=== PATIENT | male | born 1930 | race Caucasian/White ===

== ENCOUNTER 2016-07-29 09:05 | Emergency (ER) | payer MEDICARE, OTHER ==
[2016-07-29 09:21] VITALS: BP 117/58
--- NOTE | 2016-07-29 10:21 | UC ---
Throat Pain/Nasal Long HPI - HPI Summary HPI Summary: FOUR DAYS OF SINUS CONGESTION PRESSURE, COUGH. FEELS LIKE PHLEGM CAUGHT AT BACK OF THROAT. NO FEVER. - History of Current Complaint Chief Complaint: UCRespiratory Stated Complaint: RESP COMPLAINT Time Seen by Provider: 07/29/16 10:00 Hx Obtained From: Patient Onset/Duration: Gradual Onset Severity: Moderate Cough: Productive Associated Signs & Symptoms: Positive: Sinus Discomfort, Nasal Discharge. Negative: Fever - Epiglottits Risk Factors Epiglottis Risk Factors: Negative - Allergies/Home Medications Allergies/Adverse Reactions: Allergies Allergy/AdvReac Type Severity Reaction Status Date / Time No Known Allergies Allergy Verified 01/17/15 11:00 Home Medications: Home Medications Indomethacin [Tivorbex] 20 mg PO 07/29/16 [History] PMH/Surg Hx/FS Hx/Imm Hx Previously Healthy: Yes - Surgical History Surgical History: Yes Surgery Procedure, Year, and Place: T&A as a child. Cardiac Cath 1994 - Social History Occupation: Retired Lives: With Family Alcohol Use: None Substance Use Type: None Smoking Status (MU): Former Smoker Type: Pipe Length of Time of Smoking/Using Tobacco: 20 years Have You Smoked in the Last Year: No When Did the Patient Quit Smoking/Using Tobacco: Quit 1984 Review of Systems Constitutional: Negative Skin: Negative Eyes: Negative ENT: Nasal Discharge Respiratory: Cough Cardiovascular: Negative Gastrointestinal: Negative Genitourinary: Negative Motor: Negative Neurovascular: Negative Musculoskeletal: Negative Neurological: Negative Psychological: Negative All Other Systems Reviewed And Are Negative: Yes Physical Exam Triage Information Reviewed: Yes Appearance: No Pain Distress, Well-Nourished, Ill-Appearing - MILDLY Vital Signs: Initial Vital Signs Temp 97.2 F 07/29/16 09:18 Pulse 62 07/29/16 09:18 Resp 18 07/29/16 09:18 BP 117/58 07/29/16 09:18 Pulse Ox 96 07/29/16 09:18 Vital Signs Reviewed: Yes Eye Exam: Normal ENT: Positive: Hearing grossly normal, Pharynx normal, Nasal congestion, TM bulging, TM dull Dental Exam: Normal Neck exam: Normal Neck: Positive: Supple, Nontender, No Lymphadenopathy Respiratory Exam: Other - COUGH Respiratory: Positive: Chest non-tender, Lungs clear, Normal breath sounds, No respiratory distress, No accessory muscle use Cardiovascular Exam: Normal Cardiovascular: Positive: RRR, No Murmur, Pulses Normal Abdominal Exam: Normal Musculoskeletal Exam: Normal Musculoskeletal: Positive: Strength Intact Neurological Exam: Normal Psychological Exam: Normal Skin Exam: Normal Throat Pain/Nasal Course/Dx - Differential Dx/Diagnosis Differential Diagnosis/HQI/PQRI: Sinusitis, URI Provider Diagnoses: SINUSITIS; UPPER RESPIRATORY INFECTION Discharge - Discharge Plan Condition: Stable Disposition: HOME Prescriptions: Azithromycin TAB* [Zithromax TAB (Z-CASEY) 250 mg #6 tabs] 250 mg PO DAILY #6 tab Benzonatate CAP* [Tessalon 100 MG CAP*] 100 mg PO TID PRN #15 cap PRN Reason: Cough Patient Education Materials: Sinusitis (ED), Upper Respiratory Infection (ED) Referrals: Elton Jerez MD [Primary Care Provider] -
== END 2016-07-29 10:21 | disposition home or self-care (01) ==
LOC: UCEAST 09:05
DX: J32.9 Chronic sinusitis, unspecified (principal); J06.9 Acute upper respiratory infection, unspecified; Z87.891 Personal history of nicotine dependence
CPT/HCPCS: 99202; G0463

== ENCOUNTER 2016-09-20 08:48 | Emergency (ER) | payer MEDICARE, OTHER ==
--- NOTE | 2016-09-20 09:26 | UC ---
Truncal Trauma HPI - HPI Summary HPI Summary: 86 Y/O male being seen for C/O GL fall with subsequent R rib pain with movement. Mr Bartlett states was walking with his walker when he tripped and fell hitting his walker on his right side. Denies LOC, denies dizziness or faintness at time of fall. Denies pain other than in posterior right side of trunk. Discussed with Mr Bartlett elevated Blood pressure. has follow up with PMD but is unsure of the date. will follow up for B/P check at nearby fire station. is taking antihypertensive as directed. - History Of Current Complaint Chief Complaint: UCBackPain Stated Complaint: RIB INJURY Time Seen by Provider: 09/20/16 09:14 Hx Obtained From: Patient, Family/Multimedia Engineer Onset/Duration: Sudden Onset Onset Of Pain: Post Accident Severity Initially: Moderate Severity Currently: Moderate Pain Scale Used: 0-10 Numeric - Rates pain 4/10 Mechanism Of Injury: Fall From A Standing Position Aggravating Factor(s): Movement Alleviating factor(s): Rest Associated Signs And Symptoms: Positive: Negative - Allergies/Home Medications Allergies/Adverse Reactions: Allergies Allergy/AdvReac Type Severity Reaction Status Date / Time No Known Allergies Allergy Verified 09/20/16 09:02 Home Medications: Home Medications Atorvastatin* [Lipitor*] 20 mg PO 2100 09/20/16 [History Confirmed 09/20/16] Lisinopril TAB* [Prinivil TAB*] 20 mg PO DAILY 09/20/16 [History Confirmed 09/20] Methotrexate TAB* 10 mg PO WEEKLY 09/20/16 [History Confirmed 09/20/16] Nitroglycerin TAB 0.4 MG* 0.4 mg SL Q5M PRN 09/20/16 [History Confirmed 09/20/16 ] PMH/Surg Hx/FS Hx/Imm Hx Previously Healthy: Yes Endocrine History: Dyslipidemia Cardiovascular History: Cardiac Disease, Hypertension, Myocardial Infarction - Surgical History Surgical History: Yes Surgery Procedure, Year, and Place: T&A as a child. Cardiac Cath 1994 - Family History Known Family History: Positive: Cardiac Disease - Social History Occupation: Retired Lives: With Family Alcohol Use: None Substance Use Type: None Smoking Status (MU): Former Smoker Type: Pipe Length of Time of Smoking/Using Tobacco: 20 years Have You Smoked in the Last Year: No When Did the Patient Quit Smoking/Using Tobacco: Quit 1984 Review of Systems Constitutional: Negative Skin: Negative Eyes: Negative ENT: Negative Respiratory: Negative Cardiovascular: Negative Gastrointestinal: Negative Genitourinary: Negative Motor: Negative Neurovascular: Negative Musculoskeletal: Negative Neurological: Negative Psychological: Negative All Other Systems Reviewed And Are Negative: Yes Physical Exam Triage Information Reviewed: Yes Appearance: Well-Appearing Vital Signs: Initial Vital Signs Temp 97.7 F 09/20/16 08:59 Pulse 64 09/20/16 08:59 Resp 18 09/20/16 08:59 BP 159/93 09/20/16 08:59 Pulse Ox 100 09/20/16 08:59 Vital Signs Reviewed: Yes Eye Exam: Normal Eyes: Positive: Conjunctiva Clear ENT Exam: Normal ENT: Positive: Normal ENT inspection Dental Exam: Normal Neck exam: Normal Neck: Positive: Supple Respiratory Exam: Normal Respiratory: Positive: No respiratory distress Cardiovascular Exam: Normal Cardiovascular: Positive: RRR Abdominal Exam: Normal Abdomen Description: Positive: Nontender Bowel Sounds: Positive: Present Musculoskeletal Exam: Normal Musculoskeletal: Positive: Strength Intact, ROM Intact Neurological Exam: Normal Neurological: Positive: Alert Psychological Exam: Normal Skin Exam: Normal Truncal Trauma Course/Dx - Differential Dx/Diagnosis Differential Diagnosis/HQI/PQRI: Chest Wall Contusion, Rib Fracture Provider Diagnoses: Right 9th, 10th, and 11th rib fractures Discharge - Discharge Plan Condition: Stable Disposition: HOME Patient Education Materials: Rib Fracture (ED) Referrals: Elton Jerez MD [Primary Care Provider] - Additional Instructions: Your XRays show that you have fractured the 9th, 10th, and 11th ribs on your right side. Get plenty of rest and continue regular activity as tolerated. You may take Ibuprofen as needed for pain. Do not exceed 600mg every 8 hours. If you experience shortness of breath or increasing pain please follow up with your primary medical provider or return to the urgent care or emergency room. Your repeat blood pressure was 149/71 which is mildly elevated. Follow up with your primary medical provider if your blood pressure remains elevated.
--- NOTE | 2016-09-20 10:54 | RAD ---
Indication: Right-sided rib pain. 3 views of the right ribs are reviewed. There are fractures of the right 11th and 10th, ninth ribs laterally. Minimal displacement is noted. Lung cody demonstrates hyperinflated lung cody. No pneumothorax is identified. Left lung field is clear. IMPRESSION: Minimally displaced fracture of the right 11th, 10th and ninth ribs laterally.
[2016-09-20 10:56] VITALS: BP 149/71
[2016-09-20] MEDS ORDERED: Nitroglycerin TAB 0.4 MG* 0.4 MG TAB SL PRN (11:21)
== END 2016-09-20 11:15 | disposition home or self-care (01) ==
LOC: UCEAST 08:48
DX: S22.41XA Multiple fractures of ribs, right side, initial encounter for closed fracture (principal); W18.30XA Fall on same level, unspecified, initial encounter; Y93.9 Activity, unspecified; Y99.9 Unspecified external cause status; I10 Essential (primary) hypertension; E78.5 Hyperlipidemia, unspecified; I25.2 Old myocardial infarction
CPT/HCPCS: 99212; G0463

== ENCOUNTER 2016-10-09 21:13 | Emergency (ER) | payer MEDICARE, OTHER ==
--- NOTE | 2016-10-09 21:55 | UC ---
Vivi Winkler Alfonso, scribed for Beka Rousseau MD on 10/09/16 at 2137 . Skin Complaint HPI - HPI Summary HPI Summary: This patient is an 86 year old M presenting to [facility] accompanied by son with a chief complaint of buttock sore noticed 5 days ago. The patient rates the pain 7 /10 in severity. Patient denies fever, and chills. PMHx includes CAD. Patients medications reviewed this visit. Patients allergies reviewed this visit. - History of Current Complaint Chief Complaint: UCSkin Stated Complaint: SORES IN PRIVATE AREAS Hx Obtained From: Patient Onset/Duration: Sudden Onset, Lasting Days - 5, Still Present Onset Severity: Moderate Current Severity: Moderate Pain Intensity: 7 Pain Scale Used: 0-10 Numeric Location: Other - Buttock Character: Pain Associated Signs & Symptoms: Negative: Fever, Chills - Allergy/Home Medications Allergies/Adverse Reactions: Allergies Allergy/AdvReac Type Severity Reaction Status Date / Time No Known Allergies Allergy Verified 10/09/16 21:21 Home Medications: Home Medications Fluticasone Propionate (Nasal) [Allergy Relief] BID 10/09/16 [History] Indomethacin CAP* [Indocin CAP*] 25 mg PO BID 10/09/16 [History Confirmed ] Metoprolol Succinate XL TAB* [Toprol XL TAB*] 25 mg PO DAILY 10/09/16 [History Confirmed 10/09/16] Ranitidine TAB (NF) [Zantac TAB (NF)] 150 mg PO BID 10/09/16 [History Confirmed 10/09/16] Review of Systems Constitutional: Negative Skin: Other - buttock sore All Other Systems Reviewed And Are Negative: Yes PMH/Surg Hx/FS Hx/Imm Hx Cardiovascular History: Cardiac Disease - Surgical History Surgical History: Yes Surgery Procedure, Year, and Place: T&A as a child. Cardiac Cath 1994 - Family History Known Family History: Positive: Cardiac Disease - Social History Alcohol Use: None Substance Use Type: None Smoking Status (MU): Former Smoker Type: Pipe Length of Time of Smoking/Using Tobacco: 20 years Have You Smoked in the Last Year: No When Did the Patient Quit Smoking/Using Tobacco: Quit 1984 Physical Exam Triage Information Reviewed: Yes Vital Signs: Initial Vital Signs Pulse 58 10/09/16 21:16 Resp 20 10/09/16 21:16 Pulse Ox 100 10/09/16 21:16 Vital Signs Reviewed: Yes ENT Exam: Normal Neck exam: Normal Respiratory: Positive: Lungs clear, Normal breath sounds Cardiovascular: Positive: RRR, No Murmur Abdomen Description: Positive: Nontender Musculoskeletal: Positive: Strength Intact, ROM Intact Psychological: Positive: Normal Response To Family, Age Appropriate Behavior Skin: Positive: breakdown - sacral decubitus areas bilateral buttock area without cellulitis or foul drainage. Stage two ulcers. Course/Dx - Course Course Of Treatment: 86 yr old male with stage 2 decubitus ulcers. They were cleaned and occlusive dressing applied. DC to home in good condition. FU with PMD for home care referral and dressing orders. The son states they will call the PMD in the AM> - Diagnoses Provider Diagnoses: decubitus ulcers sacral area stage 2 Discharge - Discharge Plan Condition: Good Disposition: HOME Patient Education Materials: How to Prevent Pressure Ulcers (ED) Referrals: Elton Jerez MD [Primary Care Provider] - The documentation as recorded by the Vivi almanzar Alfonso accurately reflects the service I personally performed and the decisions made by Soham florentino Walter, MD.
== END 2016-10-09 21:53 | disposition home or self-care (01) ==
LOC: UCEAST 21:13
DX: L89.152 Pressure ulcer of sacral region, stage 2 (principal); Z87.891 Personal history of nicotine dependence; I51.9 Heart disease, unspecified
CPT/HCPCS: 99211; G0463